=== PATIENT | male | born 1980 ===

== ENCOUNTER 2020-06-11 14:05 | Outpatient (CLI) | payer OTHER | END 2020-06-11 14:23 | disposition home or self-care (01) | LOC: SONOGRAMA 14:05 | PROVIDERS: ATTEND Orthopaedic Surgery | DX: D48.1 Neoplasm of uncertain behavior of connective and other soft tissue (principal); M25.511 Pain in right shoulder; M54.6 Pain in thoracic spine; M54.5 Low back pain ==

== ENCOUNTER 2022-11-13 21:44 | Emergency (ER) | payer OTHER ==
[~2022-11-13] VITALS: Ht 185.4 cm; Wt 84.4 kg
== END 2022-11-13 23:20 | disposition home or self-care (01) ==
LOC: ER 21:44
DX: K29.70 Gastritis, unspecified, without bleeding (principal); Z88.6 Allergy status to analgesic agent